=== PATIENT | male | born 1965 | race African-American/Black ===

== ENCOUNTER 2019-02-17 19:05 | Emergency (ER) | payer OTHER ==
[2019-02-17] MEDS: KETOROLAC 60 MG INJ IM (22:12)
== END 2019-02-18 00:02 | disposition home or self-care (01) ==
LOC: FTE 02-18 00:02
DX: M25.461 Effusion, right knee (principal); F17.210 Nicotine dependence, cigarettes, uncomplicated; M19.90 Unspecified osteoarthritis, unspecified site
CPT/HCPCS: 73562; 96372; 99284-25